=== PATIENT | female | born 1955 ===

== ENCOUNTER 2023-05-14 06:12 | Day surgery (SDC) | payer OTHER ==
[~2023-05-14 06:12] MED LIST: ANTIVERT25 M2; CATAFLAN; PEPCID AC20 MG; PROTONIX40 MG; VITAMIN D31250 MCG
[2023-05-14] MEDS ORDERED: CEFAZOLIN SODIUM 1,000 MG VIAL ONE (08:10)
[2023-05-14] MEDS ORDERED: CEFAZOLIN SODIUM 1,000 MG VIAL IV ONE (09:15)
== END 2023-05-14 11:20 | disposition home or self-care (01) ==
LOC: CIR.AMB 06:12
PROVIDERS: ATTEND Surgery Surgery of the Hand
DX: G56.01 Carpal tunnel syndrome, right upper limb (principal); M67.843 Other specified disorders of tendon, right hand; Z91.011 Allergy to milk products